=== PATIENT | female | born 1970 | race Caucasian/White ===

== ENCOUNTER 2019-03-16 14:57 | Emergency (ER) | payer BC, OTHER ==
[2019-03-16] MEDS ORDERED: ONDANSETRON INJ 4 MG/2 ML VIAL IV ONE (15:40)
[2019-03-16] MEDS ORDERED: SODIUM CHLORIDE 0.9% 1000ML 1,000 ML IVS ONE ×2 (15:40→16:36)
--- NOTE | 2019-03-16 15:57 | ED.PDOC ---
History of Present Illness - General Chief Complaint: General Stated Complaint: Possible allergic reaction to medications Time Seen by Provider: 03/16/19 15:39 Source: patient, RN notes reviewed, Vital Signs reviewed Exam Limitations: no limitations - History of Present Illness Initial Comments: patient presents with complaints of dizziness with associated nausea and vomiting. Patient was seen in this ER 6 days ago and diagnosed with a UTI and started on Macrobid. Patient took 2 doses the medicine and quit taking it due to the associated nausea and vomiting. Patient was continued dysuria and frequency and was convinced by her restart the medications morning. Within a few hours of taking the medicine patient became extremely nauseated throughout 8-10 times andhad onset of dizziness. She denies any shortness of breath, itching, headache, blurry vision, photophobia, chest pain, shortness of breath, diarrhea. Patient seems to make the nausea and vomiting worse which in turn worsen some dizziness. Nothing seems to make it better. Patient did take Zofran but was unable hold it down. He denies any fever or chills. Timing/Duration: 4-6 hours Severity: moderate Improving Factors: nothing Worsening Factors: medication - Macrobid Associated Symptoms: nausea/vomiting Allergies/Adverse Reactions: Allergies Cephalosporins Allergy (Verified 03/16/19 15:13) Morphine Allergy (Verified 03/16/19 15:13) Home Medications: Ambulatory Orders Ciprofloxacin [Cipro] 500 mg PO BID 7 Days #14 tab 03/16/19 Review of Systems - Review of Systems Constitutional: States: no symptoms reported, see HPI EENTM: States: no symptoms reported, see HPI Respiratory: States: no symptoms reported Cardiology: States: no symptoms reported Gastrointestinal/Abdominal: States: see HPI, nausea, vomiting Genitourinary: States: see HPI, dysuria - burning in nature, frequency Musculoskeletal: States: no symptoms reported Skin: States: no symptoms reported Neurological: States: see HPI, other - dizziness Endocrine: States: no symptoms reported Hematologic/Lymphatic: States: no symptoms reported All other Systems: Reviewed and Negative Past Medical History (General) - Patient Medical History Hx of COPD: No Hx Cardiac Disorders: Yes - Afib Hx Pacemaker: Yes Hx Hypertension: No Hx Diabetes: No Surgical History: cholecystectomy, pacemaker, other - Vaccination History Hx Tetanus, Diphtheria Vaccination: No Hx Influenza Vaccination: No Hx Pneumococcal Vaccination: No - Social History Hx Tobacco Use: No Hx Alcohol Use: Yes - Occasional Hx Substance Use: No Hx Substance Use Treatment: No - Female History Patient is a Female of Child Bearing Age (10 -59 yrs old): Yes Patient : No - Denies; possibly menopausal Family Medical History - Family History Father Living Status: Still Living Hx Cardiac Disease: Yes Mother Living Status: Still Living Hx Family Congestive Heart Failure: Yes Physical Exam - Physical Exam General Appearance: Alert, Anxious, Ill Appearing, Well Developed, Well Groomed, Well Hydrated, Well Nourished Eye Exam: bilateral normal Ears, Nose, Throat: hearing grossly normal, normal ENT inspection, other - dry mucous membranes Neck: non-tender, full range of motion, supple, normal inspection Respiratory: chest non-tender, lungs clear, normal breath sounds, no respiratory distress Cardiovascular/Chest: normal peripheral pulses, regular rate, rhythm, no edema, no gallop, no JVD, no murmur Gastrointestinal/Abdominal: normal bowel sounds, soft, no organomegaly, tenderness - suprapubic Back Exam: normal inspection, no CVA tenderness, no vertebral tenderness Extremity: normal range of motion, non-tender, normal inspection, no pedal edema 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 03/16/19 17:46 Patient was markedly improved after IV Zofran and IV fluids. Suspect that her symptoms are secondary to medication reaction. Plan a discontinuation of Macrobid and started the patient on Cipro by mouth. First dose was given here in the ED. I discussed this plan of care with the patient and she voices understanding and agreeable with the plan of care. Patient still has Zofran at home and does not need any more Valeriano Connolly M.D. #[id number] Departure - Departure Clinical Impression: Dehydration Urinary tract infection Qualifiers: Urinary tract infection type: acute cystitis Hematuria presence: without hematuria Qualified Code(s): N30.00 - Acute cystitis without hematuria Medication reaction Qualifiers: Encounter type: initial encounter Qualified Code(s): T50.905A - Adverse effect of unspecified drugs, medicaments and biological substances, initial encounter [id number] adverse reaction to medication Qualifiers: Encounter type: initial encounter Qualified Code(s): T88.7XXA - Unspecified a dverse effect of drug or medicament, initial encounter Time of Disposition: 17:49 Disposition: Discharge to Home or Self Care Condition: Good Departure Forms: ED Discharge - Pt. Copy, Patient Portal Self Enrollment Instructions: Urinary Tract Infection, Adult (DC), Dehydration, Adult (DC) Referrals: Lucinda March MD [Primary Care Provider] - 1-2 Weeks Prescriptions: Ciprofloxacin [Cipro] 500 mg PO BID 7 Days #14 tab Home Medications: Ambulatory Orders Ciprofloxacin [Cipro] 500 mg PO BID 7 Days #14 tab 03/16/19
[2019-03-16] MEDS ORDERED: CIPROFLOXACIN 500 MG TAB PO ONE (17:11)
[2019-03-16 18:06] VITALS: BP 134/81; TEMP 97.3; O2SAT 96
== END 2019-03-16 17:56 | disposition home or self-care (01) ==
LOC: ER 14:57
DX: R11.2 Nausea with vomiting, unspecified (principal); T37.8X5A Adverse effect of other specified systemic anti-infectives and antiparasitics, initial encounter; N30.00 Acute cystitis without hematuria; E86.0 Dehydration; Z88.5 Allergy status to narcotic agent; Z88.3 Allergy status to other anti-infective agents; I48.91 Unspecified atrial fibrillation; Z95.0 Presence of cardiac pacemaker
CPT/HCPCS: 81001; J2405; J7030